=== PATIENT | female | born 1960 | race Caucasian/White ===

== ENCOUNTER 2020-11-15 12:40 | Outpatient (CLI) | payer OTHER ==
[2020-11-16 01:52] LABS: SARS-CoV-2 PCR by NAA Not Detected (NotDetected)
[2020-11-19 14:58] VITALS: BMI 22.1
[2020-11-20 16:45] LABS: #Neutrophils 4.4 10x3/uL (1.5-8.4); %Basophils 0.5 % (0.0-2.0); %Eosinophils 2.8 % (0.0-6.0); %Monocytes 7.2 % (0.0-10.0); %Neutrophils 57.1 % (40.0-75.0); Hemoglobin 14.2 g/dL (12.0-15.5); Mean Corpuscular HGB CONC 33.1 g/dL (32.0-36.0); Mean Corpuscular Hemoglobin 29.9 pg (27.0-33.0); Mean Corpuscular Volume 90.3 fl (81.6-98.3); Mean Platelet Volume 9.9 fl (7.4-10.4); Platelet Count 270 10x3/uL (150-450); Red Blood Cell (RBC) Count 4.75 10x6/uL (3.90-5.03); White Blood Cell (WBC) Count 7.7 10x3/uL (3.5-10.5)
[2020-11-20 16:46] LABS: #Eosinphils 0.2 10x3/uL (0.0-0.5); #Monocytes 0.6 10x3/uL (0.0-1.1)
== END 2020-11-15 12:41 | disposition home or self-care (01) ==
LOC: CSHLAB 12:40
PROVIDERS: ATTEND Podiatrist Foot & Ankle Surgery
DX: Z20.822 Contact with and (suspected) exposure to COVID-19 (principal)
CPT/HCPCS: 85025; 87635; U0003; U0005

== ENCOUNTER 2020-11-20 10:50 | Day surgery (SDC) | payer OTHER ==
[2020-11-20] MEDS ORDERED: Lidocaine 1% MPF 2 ML VIAL ONE (11:00)
[2020-11-20] MEDS ORDERED: Dexamethasone 20 MG/5 ML VIAL ONE (12:49)
[2020-11-20] MEDS ORDERED: Ketorolac Tromethamine 15 MG/ML VIAL ONE ×2 (12:49)
[2020-11-20] MEDS ORDERED: Fentanyl 100 MCG/2 ML VIAL ONE ×2 (12:49→15:13)
[2020-11-20] MEDS ORDERED: Neomycin-Polymyxin 1 ML AMP ONE (12:49)
[2020-11-20] MEDS ORDERED: Midazolam HCl 2 mg/2 ml Vial ONE (12:49)
[2020-11-20] MEDS ORDERED: Glycopyrrolate 0.2 MG/ML 5 ML SYRINGE ONE (12:49)
[2020-11-20] MEDS ORDERED: Ondansetron PF 4 MG/2 ML Vial ONE (12:49)
[2020-11-20] MEDS ORDERED: PROPOFOL 20 ML ONE (12:49)
[2020-11-20] MEDS ORDERED: Bupivacaine PF 0.5% 30 ML VIAL ONE (12:49)
[2020-11-20] MEDS ORDERED: Promethazine HCl 25 MG/ML VIAL IM PRN (15:45)
[2020-11-20] MEDS ORDERED: Zolpidem Tartrate 5 MG TAB PO PRN (15:45)
[2020-11-20] MEDS ORDERED: Ondansetron PF 4 MG/2 ML Vial IVP PRN (15:45)
[2020-11-20] MEDS ORDERED: Ropivacaine 0.2% 550 ML 550 ML NERVE BLCK SCH (15:45)
== END 2020-11-20 16:50 | disposition home or self-care (01) ==
LOC: CSHSDC 10:50
PROVIDERS: ATTEND Podiatrist Foot & Ankle Surgery
DX: M20.11 Hallux valgus (acquired), right foot (principal); M25.374 Other instability, right foot; M79.671 Pain in right foot
CPT/HCPCS: 93005; 93010; A4306; C1713; J0690; J1100; J1885; J2250; J2405; J2704; J2795; J3010; J7620; S0020

== ENCOUNTER 2021-10-14 13:51 | Outpatient (CLI) | payer OTHER | END 2021-10-14 13:52 | disposition home or self-care (01) | LOC: CSHMAMMO 13:51 | PROVIDERS: ATTEND Family Medicine | DX: Z12.31 Encounter for screening mammogram for malignant neoplasm of breast (principal); Z13.820 Encounter for screening for osteoporosis; Z80.3 Family history of malignant neoplasm of breast; Z98.82 Breast implant status; M81.0 Age-related osteoporosis without current pathological fracture; F17.219 Nicotine dependence, cigarettes, with unspecified nicotine-induced disorders | CPT/HCPCS: 77063; 77067; 77080 ==

== ENCOUNTER 2022-08-20 09:51 | Inpatient (IN) | payer OTHER ==
[2022-08-20] MEDS ORDERED: Dexamethasone 10 MG/ML VIAL ONE (10:09)
[2022-08-20] MEDS ORDERED: Magnesium 2 GM/50 ML BAG (IN WATER) ONE (10:09)
[2022-08-20] MEDS ORDERED: Ipratropium/Albuterol 3 ML NEB ONE (10:25)
[2022-08-20 10:35] LABS: SARS-CoV-2 NAA Rapid Test DETECTED (NotDetected)
[2022-08-20 11:13] LABS: #Monocytes 0.3 10x3/uL (0.0-1.1); #Neutrophils 3.1 10x3/uL (1.5-8.4); %Basophils 0.5 % (0.0-2.0); %Eosinophils 0.8 % (0.0-6.0); %Lymphocytes 11.4 % (18.0-47.0); %Monocytes 8.3 % (0.0-10.0); Hemoglobin 12.8 g/dL (12.0-15.5); Mean Corpuscular HGB CONC 34.5 g/dL (32.0-36.0); Mean Corpuscular Hemoglobin 31.1 pg (27.0-33.0); Mean Corpuscular Volume 90.3 fl (81.6-98.3); Mean Platelet Volume 10.3 fl (7.4-10.4); Platelet Count 184 10x3/uL (150-450); RBC Distribution Width 12.4 % (11.5-14.5); Red Blood Cell (RBC) Count 4.11 10x6/uL (3.90-5.03)
[2022-08-20 11:14] LABS: ALT (SGPT) 14 U/L (8-55); AST (SGOT) 15 U/L (5-34); Albumin 3.9 g/dL (3.4-4.8); Alkaline Phosphatase 69 U/L (40-110); Anion Gap 11 mmol/L (10-20); BUN (Urea Nitrogen) 10 mg/dL (9.8-20.1); Bilirubin, Total 0.7 mg/dL (0.2-1.2); CK (CPK) 71 U/L (29-168); Calc. Creatinine Clearance 0 mL/min (70-130); Calcium 8.3 mg/dL (7.8-10.44); Carbon Dioxide 24 mmol/L (23-31); Chloride 110 mmol/L (98-107); Estimated GFR 90; Globulin 1.8 g/dL (2.4-3.5); Glucose 106 mg/dL (80-115); Lipase 9 U/L (8-78); Potassium 3.8 mmol/L (3.5-5.1); Protein, Total 5.7 g/dL (5.8-8.1); Sodium 141 mmol/L (136-145)
[2022-08-20] MEDS ORDERED: Acetaminophen 325 MG TAB PO PRN (14:09)
[2022-08-20] MEDS ORDERED: Ondansetron PF 4 MG/2 ML Vial IVP PRN (14:09)
[2022-08-20] MEDS ORDERED: Senokot S 8.6-50 MG TAB PO PRN (14:09)
[2022-08-20 15:14] VITALS: BMI 23.2
[2022-08-20] MEDS: Sodium Chloride 0.9% 1,000 ML IV SCH (16:47)
[2022-08-20] MEDS: Benzonatate 100 MG CAP PO PRN (16:56)
[2022-08-20] MEDS ORDERED: REMDESIVIR 200 MG in Sodium Chloride 0.9% 250 ML 210 ML IV SCH ×2 (18:00→20:00)
[2022-08-20] MEDS: HYDROcodone/Acetaminophen 5/325 mg Tablet PO SCH (20:38)
[2022-08-20] MEDS: Famotidine 20 MG TAB PO SCH (20:38)
[2022-08-20] MEDS: Ventolin HFA Inhaler 60 PUFF INHALER INH SCH (20:42)
[2022-08-21] MEDS: Benzonatate 100 MG CAP PO PRN (01:06)
[2022-08-21] MEDS: Albuterol 200 PUFF (6.7GM INHALER) INH SCH ×4 (02:06→22:35)
[2022-08-21] MEDS: Sodium Chloride 0.9% 1,000 ML IV SCH (04:51)
[2022-08-21 05:47] LABS: #Monocytes 0.6 10x3/uL (0.0-1.1); #Neutrophils 2.5 10x3/uL (1.5-8.4); %Basophils 0.2 % (0.0-2.0); %Lymphocytes 27.8 % (18.0-47.0); %Monocytes 12.9 % (0.0-10.0); %Neutrophils 58.9 % (40.0-75.0); Hemoglobin 11.6 g/dL (12.0-15.5); Mean Corpuscular HGB CONC 33.5 g/dL (32.0-36.0); Mean Corpuscular Hemoglobin 30.7 pg (27.0-33.0); Mean Corpuscular Volume 91.5 fl (81.6-98.3); Mean Platelet Volume 10.1 fl (7.4-10.4); Platelet Count 185 10x3/uL (150-450); RBC Distribution Width 12.8 % (11.5-14.5); Red Blood Cell (RBC) Count 3.78 10x6/uL (3.90-5.03); White Blood Cell (WBC) Count 4.3 10x3/uL (3.5-10.5)
[2022-08-21 05:55] LABS: Anion Gap 10 mmol/L (10-20); BUN (Urea Nitrogen) 12 mg/dL (9.8-20.1); Calc. Creatinine Clearance 75 mL/min (70-130); Calcium 8.2 mg/dL (7.8-10.44); Carbon Dioxide 25 mmol/L (23-31); Cardiac Risk 2.9 (Less than 4.5); Chloride 109 mmol/L (98-107); Cholesterol 156 mg/dl (< 200 Desired); Estimated GFR 97; Glucose 83 mg/dL (80-115); HDL Cholesterol 53 mg/dL (>60 Neg Risk); LDL Cholesterol, Calculated 92 mg/dL; Potassium 4.1 mmol/L (3.5-5.1); Sodium 140 mmol/L (136-145); Triglycerides 53 mg/dL (Less than 150)
[2022-08-21] MEDS: Ventolin HFA Inhaler 60 PUFF INHALER INH SCH ×2 (07:06→21:35)
[2022-08-21] MEDS: HYDROcodone/Acetaminophen 5/325 mg Tablet PO SCH ×2 (08:38→21:35)
[2022-08-21] MEDS: Zinc Sulfate 220 MG CAP PO SCH (08:39)
[2022-08-21] MEDS: Ascorbic Acid 500 mg Chewable Tablet PO SCH (08:39)
[2022-08-21] MEDS: Aspirin 81 mg Enteric Coated Tablet PO SCH (08:39)
[2022-08-21] MEDS: Famotidine 20 MG TAB PO SCH ×2 (08:39→21:35)
[2022-08-21] MEDS: Ondansetron ODT 4 MG TAB PO PRN (13:19)
[2022-08-21] MEDS: REMDESIVIR 100 MG in Sodium Chloride 0.9% 250 ML 230 ML IV SCH (18:17)
[2022-08-22] MEDS: Albuterol 200 PUFF (6.7GM INHALER) INH SCH ×4 (01:50→19:00)
[2022-08-22 06:48] LABS: Anion Gap 11 mmol/L (10-20); BUN (Urea Nitrogen) 9 mg/dL (9.8-20.1); Calc. Creatinine Clearance 80 mL/min (70-130); Calcium 8.1 mg/dL (7.8-10.44); Carbon Dioxide 24 mmol/L (23-31); Chloride 108 mmol/L (98-107); Estimated GFR 98; Glucose 83 mg/dL (80-115); Potassium 3.7 mmol/L (3.5-5.1); Sodium 139 mmol/L (136-145)
[2022-08-22 07:01] LABS: #Monocytes 0.3 10x3/uL (0.0-1.1); %Basophils 0.6 % (0.0-2.0); %Eosinophils 0.6 % (0.0-6.0); %Lymphocytes 34.6 % (18.0-47.0); %Monocytes 8.9 % (0.0-10.0); %Neutrophils 55.3 % (40.0-75.0); Mean Corpuscular HGB CONC 33.5 g/dL (32.0-36.0); Mean Corpuscular Hemoglobin 30.7 pg (27.0-33.0); Mean Corpuscular Volume 91.6 fl (81.6-98.3); Mean Platelet Volume 10.4 fl (7.4-10.4); Platelet Count 164 10x3/uL (150-450); RBC Distribution Width 13.1 % (11.5-14.5); Red Blood Cell (RBC) Count 3.91 10x6/uL (3.90-5.03); White Blood Cell (WBC) Count 3.6 10x3/uL (3.5-10.5)
[2022-08-22] MEDS: Ventolin HFA Inhaler 60 PUFF INHALER INH SCH ×2 (07:12→19:00)
[2022-08-22] MEDS: Ascorbic Acid 500 mg Chewable Tablet PO SCH (08:46)
[2022-08-22] MEDS: HYDROcodone/Acetaminophen 5/325 mg Tablet PO SCH ×2 (08:46→21:25)
[2022-08-22] MEDS: Famotidine 20 MG TAB PO SCH ×2 (08:46→21:25)
[2022-08-22] MEDS: Aspirin 81 mg Enteric Coated Tablet PO SCH (08:46)
[2022-08-22] MEDS: Zinc Sulfate 220 MG CAP PO SCH (08:46)
[2022-08-22] MEDS: REMDESIVIR 100 MG in Sodium Chloride 0.9% 250 ML 230 ML IV SCH (18:22)
[2022-08-23] MEDS: Albuterol 200 PUFF (6.7GM INHALER) INH SCH ×4 (01:00→19:00)
[2022-08-23] MEDS ORDERED: Triple Antibiotic Ointment 30 GM TUBE TOP PRN (02:21)
[2022-08-23] MEDS: Ventolin HFA Inhaler 60 PUFF INHALER INH SCH ×2 (07:11→19:00)
[2022-08-23] MEDS: Famotidine 20 MG TAB PO SCH ×2 (09:27→20:15)
[2022-08-23] MEDS: Aspirin 81 mg Enteric Coated Tablet PO SCH (09:27)
[2022-08-23] MEDS: Ascorbic Acid 500 mg Chewable Tablet PO SCH (09:27)
[2022-08-23] MEDS: HYDROcodone/Acetaminophen 5/325 mg Tablet PO SCH ×2 (09:28→20:15)
[2022-08-23] MEDS: Zinc Sulfate 220 MG CAP PO SCH (09:28)
[2022-08-23] MEDS: Ondansetron ODT 4 MG TAB PO PRN (14:37)
[2022-08-23] MEDS: Benzonatate 100 MG CAP PO PRN (14:37)
[2022-08-23] MEDS ORDERED: Dexamethasone 4 MG TAB PO SCH (16:15)
[2022-08-23] MEDS ORDERED: FLU VACC QS2022-23(6MOS UP)/PF 60 MCG/0.5 ML SYRINGE IM ONE (17:00)
[2022-08-23] MEDS: REMDESIVIR 100 MG in Sodium Chloride 0.9% 250 ML 230 ML IV SCH (20:17)
[2022-08-24] MEDS: Albuterol 200 PUFF (6.7GM INHALER) INH SCH ×2 (01:00→07:00)
[2022-08-24] MEDS: Ventolin HFA Inhaler 60 PUFF INHALER INH SCH (07:01)
[2022-08-24] MEDS ORDERED: Dexamethasone 4 MG TAB PO SCH (08:00)
[2022-08-24] MEDS: HYDROcodone/Acetaminophen 5/325 mg Tablet PO SCH (08:43)
[2022-08-24] MEDS: Aspirin 81 mg Enteric Coated Tablet PO SCH (08:44)
[2022-08-24] MEDS: Ascorbic Acid 500 mg Chewable Tablet PO SCH (08:45)
[2022-08-24] MEDS: Famotidine 20 MG TAB PO SCH (08:45)
[2022-08-24] MEDS: Zinc Sulfate 220 MG CAP PO SCH (08:45)
[2022-08-24 12:45] VITALS: BP 128/65; TEMP 97.5
== END 2022-08-24 12:35 | disposition home or self-care (01) | DRG 177 ==
LOC: CSHERS 09:51 → CSHTELE 14:33
PROVIDERS: ADMIT Internal Medicine; ATTEND Internal Medicine
PROC: XW033E5 Introduction of Remdesivir Anti-infective into Peripheral Vein, Percutaneous Approach, New Technology Group 5 (ICD-10-PCS; principal; 2022-08-20)
PROC: 8E0ZXY6 Isolation (ICD-10-PCS; 2022-08-20)
PROC: 3E0333Z Introduction of Anti-inflammatory into Peripheral Vein, Percutaneous Approach (ICD-10-PCS; 2022-08-20)
DX: U07.1 COVID-19 (principal); J12.82 Pneumonia due to coronavirus disease 2019; J96.01 Acute respiratory failure with hypoxia; J44.1 Chronic obstructive pulmonary disease with (acute) exacerbation; M54.9 Dorsalgia, unspecified; G89.29 Other chronic pain; F32.A Depression, unspecified; F43.10 Post-traumatic stress disorder, unspecified; F17.210 Nicotine dependence, cigarettes, uncomplicated; I95.9 Hypotension, unspecified; R00.0 Tachycardia, unspecified; I25.10 Atherosclerotic heart disease of native coronary artery without angina pectoris; M81.0 Age-related osteoporosis without current pathological fracture; I25.2 Old myocardial infarction; Z98.890 Other specified postprocedural states; Z90.710 Acquired absence of both cervix and uterus; Z80.8 Family history of malignant neoplasm of other organs or systems; Z79.51 Long term (current) use of inhaled steroids; Z79.899 Other long term (current) drug therapy; Z85.42 Personal history of malignant neoplasm of other parts of uterus
CPT/HCPCS: 36415; 71045; 80048; 80053; 80061; 82550; 83605; 83690; 83880; 84484; 85025; 87040; 93005; 94644; 94667; 94668; 94760; 96365; 96375; J0248; J1100; J1650; J3475; J7050; J7611; J7620; J8540; Q0162; U0002